=== PATIENT | female | born 1955 | race Caucasian/White ===

== ENCOUNTER → 2019-05-04 | Outpatient (CLI) | payer BC, MEDICARE, OTHER ==
[2019-05-04 15:04] VITALS: BP 124/86; PULSE 76; TEMP 98.2; BMI 27.0
--- NOTE | 2019-05-04 21:10 | P.BASOAP ---
Subjective Progress Note Date: 05/04/19 Principal diagnosis: GERD Patient came to the office today withof worsening reflux. Had a recent EGD which showed distal esophagitis with erosions. No Band erosion was described. CAT scan showed hiatal hernia. Patient only has 0.4 cc in her band.No abdominal pain. Patient states she sees On Protonix after the recent endoscopy. Objective - Vital Signs Vital signs: Vital Signs Temp 98.2 F 05/04/19 15:02 Pulse 76 05/04/19 15:02 Resp BP 124/86 05/04/19 15:02 Pulse Ox Intake & Output 05/04/19 05/04/19 05/05/19 06:59 18:59 06:59 Weight 80.739 kg - Exam Abdomen: Soft, nontender, nondistended Assessment/Plan (1) GERD (gastroesophageal reflux disease) Narrative/Plan: 63-year-old female with worsening reflux and endoscopic findings of esophagitis with erosions. Band will be emptied today. Obtain hematology preoperative Clearance. Review recent CAT scan report. We will schedule for lap Band removal. The patient's lap band port was palpated. The site was aseptically prepped. The Leonard needle was advanced into the port. Aspiration took place. A total of 0.3 ml of fluid was Removed. Pressure was held and a sterile dressing was applied. Plan: Date: 05/04/19 Initial Weight: Initial BMI: Current Weight: 80.739 kg Current BMI: 27.0 Type of Surgery: Total Volume in Band: 0 Previous Volume: Volume Removed: 0.4 Volume Added: Band Size:
== END | disposition home or self-care (01) ==
LOC: BARWHC3 13:23
PROVIDERS: ATTEND Surgery
DX: K21.0 Gastro-esophageal reflux disease with esophagitis (principal); K22.10 Ulcer of esophagus without bleeding; Z98.84 Bariatric surgery status
CPT/HCPCS: 99212

== ENCOUNTER 2019-06-11 07:01 | Day surgery (SDC) | payer MEDICARE ==
[2019-06-08 11:07] VITALS: BMI 27.3
[~2019-06-11 07:01] MED LIST: DEXAMETHASONE SOD PHOSPHATE 10 MG/ML 1 ML VIAL IV ONE; LACTATED RINGERS 1,000 ML IV SCH; LIDOCAINE 1% (10MG/ML) FOR IV START INTRADERMA PRN; MIDAZOLAM 2 MG/2 ML VIAL IV PRN; ONDANSETRON 4 MG/2 ML VIAL IVP ONE
[2019-06-11 07:17] VITALS: RESP 16
[2019-06-11] MEDS ORDERED: CITRIC ACID-SODIUM CITRATE 15 ML CUP PO SCH (07:30)
--- NOTE | 2019-06-11 07:32 | P.GSHP ---
History of Present Illness H&P Date: 06/11/19 Chief Complaint: Intractable vomiting, reflux Patient recent was seen in the bariatric clinic. She had an upper endoscopy which showed reflux esophagitis. Patient has been having bad reflux and intermittent vomiting. She is interested in band removal. Her lap band was em ptied that she had very little fluid in the band. She obtained hematology clearance because of history of bleeding episodes. Past Medical History Past Medical History: Fibromyalgia, GERD/Reflux, Hyperlipidemia, Osteoarthritis (OA) Additional Past Medical History / Comment(s): MFTHR Gene Mutation. Lap band. History of Any Multi-Drug Resistant Organisms: None Reported Past Surgical History: Appendectomy, Bariatric Surgery, Breast Surgery, Cholecystectomy, Hysterectomy Additional Past Surgical History / Comment(s): lap band surgery, panniculectomy, breast reduction. EGD. Past Anesthesia/Blood Transfusion Reactions: No Reported Reaction, Motion Sickness Smoking Status: Former smoker - Past Family History Daughter(s) Family Medical History: Cancer Mother Family Medical History: Cancer Father Family Medical History: Cancer Sister(s) Family Medical History: Deep Vein Thrombosis (DVT) Medications and Allergies Home Medications Medication Instructions Recorded Confirmed Type Calcium Citrate 250 mg PO BID 04/14/19 06/08/19 History Cholecalciferol (Vitamin D3) 2,000 unit PO DAILY 04/14/19 06/08/19 History [Vitamin D3] Cyanocobalamin (Vitamin B-12) 1,000 mcg PO DAILY 04/14/19 06/11/19 History [Vitamin B-12] DULoxetine HCL [Cymbalta] 60 mg PO BID 04/14/19 06/11/19 History Denosumab [Prolia] 1 injection SQ DIRECTED 04/14/19 06/11/19 History Meloxicam [Mobic] 15 mg PO BID 04/14/19 06/08/19 History Multivitamins, Thera [Multivitamin 1 tab PO DAILY 04/14/19 06/08/19 History (formulary)] Pregabalin [Lyrica] 150 mg PO BID 04/14/19 06/11/19 History Simvastatin [Zocor] 5 mg PO DAILY 04/14/19 06/11/19 History Vitamin E 1,000 unit PO DAILY 04/14/19 06/08/19 History Pantoprazole Sodium [Protonix] 40 mg PO DAILY 05/04/19 06/11/19 History Allergies Allergy/AdvReac Type Severity Reaction Status Date / Time No Known Allergies Allergy Verified 06/11/19 07:17 Surgical - Exam Vital Signs Temp Pulse Resp BP Pulse Ox 97.2 F L 65 16 130/77 96 06/11/19 07:16 06/11/19 07:16 06/11/19 07:16 06/11/19 07:16 06/11/19 07:16 Physical exam: General: Well-developed, well-nourished HEENT: Normocephalic, sclerae nonicteric Abdomen: Nontender, nondistended Extremities: No edema Neuro: Alert and oriented Assessment and Plan (1) GERD (gastroesophageal reflux disease) Narrative/Plan: 63-year-old female with reflux and intermittent vomiting. We'll proceed with laparoscopic lap band removal, possible open. The risks of bleeding, infection, stenosis, stricture, leak, abscess, fistula formation, peritonitis, conversion to an open procedure, IL, PE, DVT, and were discussed. The patient understands and wishes to proceed. Current Visit: No Status: Acute Code(s): K21.9 - GASTRO-ESOPHAGEAL REFLUX DISEASE WITHOUT ESOPHAGITIS SNOMED Code(s): 580008581
[2019-06-11] MEDS ORDERED: ROCURONIUM BROMIDE 10 MG/ML 5 ML VIAL IV ONE (08:03)
[2019-06-11] MEDS ORDERED: GLYCOPYRROLATE 0.2 MG/ML 2 ML VIAL ONE (08:03)
[2019-06-11] MEDS ORDERED: PROPOFOL 10 MG/ML 20 ML VIAL IV ONE (08:03)
[2019-06-11] MEDS ORDERED: SUCCINYLCHOLINE CHLORIDE 100 MG/5 ML SYR IV ONE (08:03)
[2019-06-11] MEDS ORDERED: fentaNYL (PF) 50 MCG/ML 2 ML AMP ONE (08:03)
[2019-06-11] MEDS ORDERED: LIDOCAINE 1% INJ 10MG/ML (20 ML MDV) ONE (08:03)
[2019-06-11] MEDS ORDERED: ePHEDrine SULFATE/0.9% NACL/PF 50 MG/5 ML SYRINGE IV ONE (08:03)
[2019-06-11] MEDS ORDERED: BUPIVACAINE (PF) 0.25% 30 ML VIAL SQ ONE ×2 (08:03→08:38)
[2019-06-11] MEDS ORDERED: MIDAZOLAM 2 MG/2 ML VIAL ONE (08:03)
[2019-06-11] MEDS ORDERED: NEOSTIGMINE 1 MG/ML 10 ML VIAL ONE (08:03)
[2019-06-11] MEDS ORDERED: LACTATED RINGERS 1,000 ML IV ONE (09:08)
[2019-06-11] MEDS ORDERED: NALOXONE 0.4 MG/ML 1 ML VIAL IV PRN (09:25)
[2019-06-11] MEDS ORDERED: HYDROcodone/APAP 5-325MG 1 EACH TAB PO PRN (09:25)
[2019-06-11 09:30] VITALS: TEMP 98
--- NOTE | 2019-06-11 09:40 | P.OP ---
Date of Procedure: 06/11/19 Procedure(s) Performed: PREOPERATIVE DIAGNOSIS: Band intolerance/abdominal pain POSTOPERATIVE DIAGNOSIS: Same PROCEDURE: Laparoscopic lap band removal SURGEON: Eleanor EBL: Minimal ANESTHESIA: General COMPLICATIONS: None OPERATIVE PROCEDURE: The patient was brought and placed on the operating room table in the supine position. The patient was placed under general anesthesia at that time. The patient was then placed in lithotomy. The abdomen was prepped and draped in the usual sterile fashion. The previous port incision was localized and then incised using a scalpel. The port was easily excised using electrocautery. Entrance into the perineal cavity occurred using a 5 mm optical trocar through the old trocar entrance site. Insufflation took place to 15 mmHg. A right subxiphoid 5 mm trocar was placed. This was then removed and the medium Rochelle hook was used to elevate the left lobe of the liver anteriorly. An additional 5 mm trocar was placed under direct visualization in the left lateral upper quadrant. The original 5 mm trocar was switched to a 15 mm trocar. A additional 5 mm trocar was placed in the right upper quadrant under direct dilatation. There were adhesions to the band in the buccal that were lysed using both the LigaSure and electrocautery. The band was then cut using the laparoscopic sumeet. The band was then removed easily in 2 portions through the 15 mm trocar site. The stomach itself was inspected and revealed no evidence of erosion or prolapse. The trochars were removed. The fascia at the 15 mm site was closed using a Jerardo-Rigoberto [id number] 0 Vicryl stitch. The subcutaneous tissues at the port site was closed using a 3-0 Vicryl suture. The skin at all 4 incision sites were closed using 4-0 Monocryl sutures. Skin glue was then applied. DISPOSITION: Stable to recovery room
[2019-06-11] MEDS: HYDROmorphone 0.5 MG/0.5 ML SYRINGE IVP PRN ×4 (09:55→10:40)
[2019-06-11 11:24] VITALS: PULSE 82
[2019-06-11] MEDS ORDERED: oxyCODONE-APAP 5-325MG 1 EACH TAB PO ONE (11:45)
[2019-06-11 11:48] VITALS: BP 124/70
== END 2019-06-11 12:29 | disposition home or self-care (01) ==
LOC: OR 07:01
PROVIDERS: ATTEND Surgery
DX: K95.09 Other complications of gastric band procedure (principal); M79.7 Fibromyalgia; M19.90 Unspecified osteoarthritis, unspecified site; E78.5 Hyperlipidemia, unspecified; K21.0 Gastro-esophageal reflux disease with esophagitis; Z87.891 Personal history of nicotine dependence; Z90.49 Acquired absence of other specified parts of digestive tract; Z90.710 Acquired absence of both cervix and uterus; Z98.890 Other specified postprocedural states; Z79.1 Long term (current) use of non-steroidal anti-inflammatories (NSAID); Z79.899 Other long term (current) drug therapy; Z80.9 Family history of malignant neoplasm, unspecified
CPT/HCPCS: 43774; J2250; J1100; J2710; J0690; J2405; J2001; J3010; J0330; J2704; J1170